=== PATIENT | female | born 1950 | race Two or more races ===

== ENCOUNTER 2022-01-29 08:02 | Day surgery (SDC) | payer OTHER, MEDICAID ==
[2022-01-29] VITALS (8 sets, daily range): BP systolic 148–170; BP diastolic 63–74
[~2022-01-29] VITALS: Ht 147.3 cm; Wt 54.4 kg
[~2022-01-29 08:02] MED LIST: AMLO-489 PO; CARV12.544 PO; CLON0.1T PO; LISI40TA11 PO; NITR0.4S29 SL
[2022-01-29] MEDS ORDERED: HEPARIN SODIUM (PORCINE) 5000 UNITS/ML 1ML VIAL ONE (10:36)
[2022-01-29] MEDS ORDERED: VERAPAMIL 2.5MG/ML INJ 2ML VIAL IV ONE (10:37)
[2022-01-29] MEDS ORDERED: IODIXANOL 320MG/ML 100ML BTL IV ONE (10:37)
[2022-01-29] MEDS ORDERED: MIDAZOLAM HCL 2MG/2ML 2ml VIAL (1mg/ml) ONE (10:37)
[2022-01-29] MEDS ORDERED: fentaNYL CITRATE 100 MCG/2 ML VL ONE (10:37)
== END 2022-01-29 13:35 | disposition home or self-care (01) ==
LOC: CATH 08:02
PROVIDERS: ATTEND Internal Medicine
DX: R94.39 Abnormal result of other cardiovascular function study (principal); I25.10 Atherosclerotic heart disease of native coronary artery without angina pectoris; I51.89 Other ill-defined heart diseases; Z20.822 Contact with and (suspected) exposure to COVID-19
CPT/HCPCS: 93458; C1760; C1769; C1894; J1644; J2250; J3010; Q9967; U0003; 99152